=== PATIENT | female | born 1935 | race Caucasian/White ===

== ENCOUNTER → 2016-05-24 | Outpatient (CLI) | payer OTHER ==
[~2016-05-24] MED LIST: ASPERDRINK81 MG PO; ASPIR 8181 M1 PO; CALCIUM 500 +1 EAC2 PO; LISINOPRIL10 MG PO; LISINOPRIL5 MG PO; NAPROSYN250 MG PO
== END | disposition home or self-care (01) ==
LOC: CDC 11:00
DX: R94.31 Abnormal electrocardiogram [ECG] [EKG] (principal)
CPT/HCPCS: 93000

== ENCOUNTER 2016-11-18 21:22 | Emergency (ER) | payer OTHER ==
[~2016-11-18] VITALS: Ht 157.5 cm; Wt 53.5 kg
[2016-11-18] MEDS ORDERED: AUGMENTIN875 MG PO (21:59)
[2016-11-18 22:54] VITALS: BP 182/85
== END 2016-11-18 22:56 | disposition home or self-care (01) ==
LOC: RME 21:22 → EME 21:22 → RME 22:56
PROC: 3E0234Z Introduction of Serum, Toxoid and Vaccine into Muscle, Percutaneous Approach (ICD-10-PCS; principal; 2016-11-18)
DX: S61.431A Puncture wound without foreign body of right hand, initial encounter (principal); W54.0XXA Bitten by dog, initial encounter; Z23 Encounter for immunization; I25.2 Old myocardial infarction; I10 Essential (primary) hypertension
CPT/HCPCS: 73130; 99281; 99284

== ENCOUNTER 2016-11-25 10:50 | Emergency (ER) | payer OTHER ==
[~2016-11-25] VITALS: Ht 157.5 cm; Wt 53.7 kg
[~2016-11-25 10:50] MED LIST changes: +AUGMENTIN875 MG PO
[2016-11-25 12:23] LABS: BASOPHIL COUNT 0.1 K/uL (0-0.1); EOSINOPHIL (%) 2.2 % (0-5); EOSINOPHIL COUNT 0.1 K/uL (0-0.3); IMMATURE GRANULOCYTE (%) 0.2 % (0.0-0.7); INSTRUMENT ABS NEUTROPHIL CT 2.6 K/uL; LYMPHOCYTE COUNT 0.9 K/uL (1.0-2.8); MCHC 32.2 G/DL (30.0-36.0); MCV 84.1 FL (83-99); MONOCYTE (%) 8.7 % (3-12); MONOCYTE COUNT 0.4 K/uL (0-0.8); NEUTROPHIL (%) 65.6 % (45-76); NEUTROPHIL COUNT 2.6 K/uL (1.8-6.4); PLATELET COUNT 164 K/uL (156-360); RBC DIS.WIDTH-CV 12.5 % (11.8-14.6); RBC DIS.WIDTH-SD 38.1 % (39-53)
[2016-11-25 12:38] LABS: CHLORIDE 105 mEq/L (99-109); POTASSIUM 4.2 mEq/L (3.7-5.4); SODIUM 137 mEq/L (136-147)
[2016-11-25 12:40] LABS: GLUCOSE 98 mg/dL (70-99)
[2016-11-25 12:41] LABS: ANION GAP 7 MEQ/L (2-14)
[2016-11-25 12:42] LABS: TOTAL BILIRUBIN 0.3 mg/dL (0.0-1.0)
[2016-11-25 12:43] LABS: ALKALINE PHOSPHATASE 50 IU/L (3-129)
[2016-11-25 12:44] LABS: GFR ESTIMATE (CALCULATED) 50 mL/min/
[2016-11-25 12:45] LABS: TROP-I INTERPRETATION NEGATIVE; TROPONIN-I < 0.01 ng/mL (0.0-0.30); UREA NITROGEN (BUN) 19 mg/dL (9-23)
[2016-11-25 13:26] LABS: ADD MIUA? NO; BILIRUBIN NEGATIVE; BLOOD NEGATIVE; COLOR YELLOW ((YELLOW)); GLUCOSE (STRIP) NEGATIVE; KETONES NEGATIVE; LEUKOCYTES NEGATIVE; NITRITE NEGATIVE; PROTEIN (STRIP) NEGATIVE; SPECIFIC GRAVITY 1.013 (1.000-1.030); UCUL ADDED? NO; UROBILINOGEN 0.2 MG/DL (0.2-1.0)
[2016-11-25 15:25] VITALS: BP 130/63
== END 2016-11-25 15:29 | disposition home or self-care (01) ==
LOC: EME 10:50
PROVIDERS: Emergency Medicine
DX: R68.84 Jaw pain (principal); R25.2 Cramp and spasm; I10 Essential (primary) hypertension; I25.2 Old myocardial infarction; W54.0XXD Bitten by dog, subsequent encounter
CPT/HCPCS: 70450; 70486; 71020; 80053; 81003; 84484; 85025; 93005; 99281; 99284